=== PATIENT | male | born 1995 | race Caucasian/White ===

== ENCOUNTER 2016-12-11 08:49 | Emergency (ER) | payer SELFPAY ==
[~2016-12-11] VITALS: Ht 177.8 cm; Wt 108.9 kg
[~2016-12-11 08:49] MED LIST: ONDA4TAB11 PO; PRD20T PO; TRAM50TA2 PO
--- OUTSIDE RECORDS SUMMARY | 2016-12-11 08:54 | XMS REPORT | Continuity of Care Document ---
Author Author [facility] Organization [facility] Address Unknown Phone Unavailable Allergies Active Description Code Type Severity Reaction Onset Reported/Identified Relationship to Patient Clinical Status Yes No Known Drug Allergies [id number] Drug Allergy Mild N/A 12/25/2009 Medications Problems Date Dx Coded Attending Type Code Diagnosis Diagnosed By 01/15/2016 YOCASTA HARTMANN Ot F17.210 NICOTINE DEPENDENCE, CIGARETTES, UNCOMPL 01/15/2016 YOCASTA HARTMANN Ot K82.4 CHOLESTEROLOSIS OF GALLBLADDER 01/15/2016 YOCASTA HARTMANN Ot R10.10 UPPER ABDOMINAL PAIN, UNSPECIFIED 01/15/2016 YOCASTA HARTMANN Ot R63.0 ANOREXIA 01/15/2016 YOCASTA HARTMANN Ot R74.8 ABNORMAL LEVELS OF OTHER SERUM ENZYMES 01/16/2016 YOCASTA HARTMANN Ot F17.210 01/16/2016 YOCASTA HARTMANN Ot K82.4 01/16/2016 YOCASTA HARTMANN Ot R10.10 01/16/2016 YOCASTA HARTMANN Ot R63.0 01/16/2016 YOCASTA HARTMANN Ot R74.8 01/17/2016 YOCASTA HARTMANN Ot F17.210 01/17/2016 YOCASTA HARTMANN Ot K82.4 01/17/2016 YOCASTA HARTMANN Ot R10.10 01/17/2016 YOCASTA HARTMANN Ot R63.0 01/17/2016 YOCASTA HARTMANN Ot R74.8 01/20/2016 YOCASTA HARTMANN Ot F17.210 01/20/2016 YOCASTA HARTMANN Ot K82.4 01/20/2016 YOCASTA HARTMANN Ot R10.10 01/20/2016 YOCASTA HARTMANN Ot R63.0 01/20/2016 YOCASAT HARTMANN Ot R74.8 Procedures Results Encounters ACCT No. Visit Date/Time Discharge Status Pt. Type Provider Facility Loc./Unit Complaint [id number] 01/15/2016 15:23:00 2015 19:04:00 DIS Emergency YOCASTA HARTMANN [facility] ER
--- NOTE | 2016-12-11 10:20 | ED EENT ---
History of Present Illness General Chief Complaint: Dental Problems/Pain Stated Complaint: L LOWER JAW PAIN Nursing Triage Note: AMBULATED TO ROOM 10 WITH COMPLAINTS OF JAW PAIN X2 DAYS. DENIES INJURY. DENIES DENTAL PAIN. Source: patient Exam Limitations: no limitations History of Present Illness Time seen by provider: 10:15 Initial Comments This 21-year-old white male presents complaining of left jaw pain for the last 2 days. The patient states that the jaw pain which is severe in nature is sharp in quality and made worse by opening his mouth. The patient denies associated headache or stiff neck, nasal congestion or sinus tenderness, difficulty swallowing, chills or fever, productive cough, nausea, vomiting, or diarrhea. Next The patient's pain has not improved with sopd-cft-dflgxur analgesics. Allergies and Home Medications Allergies Coded Allergies: No Known Drug Allergies (Verified , 12/25/09) Home Medications Ondansetron 4 Mg Tab.rapdis #10 4 MG PO Q6H PRN PRN NAUSEA Prescribed by: YOCASTA MICHEL on 01/15/161857 Prednisone 20 Mg Tab #15 1 TAB PO ONCE take 3 po this am then 2po each am for the next three days then 1 po each am for three days then stop Prescribed by: RENETTA BREEN on 12/25/09 0946 Tramadol HCl 50 Mg Tablet #10 50 MG PO Q4H PRN PRN PAIN Prescribed by: YOCASTA MICHEL on 01/15/161857 Review of Systems Constitutional: No chills, No malaise Eyes: Denies Photophobia Ears: Denies Pain Nose: denies congestion Mouth: denies loose teeth, denies purulent discharge Throat: denies pain, denies swelling Respiratory: No cough Cardiovascular: No chest pain Gastrointestinal: No abdominal pain, No diarrhea, No nausea, No vomiting Musculoskeletal: No back pain, No joint pain Skin: No rash Neurological: No Symptoms Reported Hematologic/Lymphatic: No Symptoms Reported Immunological/Allergic: no symptoms reported Past Bcxjdhj-Lgvbkx-Preubi Hx Patient Social History Alcohol Use: Occasionally Uses Recreational Drug Use: No Smoking Status: Current Everyday Smoker Recent Foreign Travel: No Contact w/Someone Who Travel: No Recent Infectious Disease Expo: No Recent Hopitalizations: No Immunizations Up To Date Tetanus Booster (TDap): Unknown Surgeries HX Surgeries: Yes Surgeries: Adenoidectomy, Tonsillectomy Respiratory Hx Respiratory Disorders: No Cardiovascular Hx Cardiac Disorders: No Neurological Hx Neurological Disorders: No Genitourinary Hx Genitourinary Disorders: No Gastrointestinal Hx Gastrointestinal Disorders: No Musculoskeletal Hx Musculoskeletal Disorders: No Endocrine Hx Endocrine Disorders: No HEENT HX ENT Disorders: No Cancer Hx Cancer: No Psychosocial Hx Psychiatric Problems: No Reviewed Nursing Assessment Reviewed/Agree w Nursing PMH: Yes Family Medical History Significant Family History: No Pertinent Family Hx Physical Exam Vital Signs Vital Sign - Last 12Hours 12/11/16 09:10 Temp 97.6 Pulse 82 Resp 16 B/P 140/83 Pulse Ox 96 General Appearance: WD/WN mild distress Eyes: bilateral eye normal inspection Ears: bilateral ear auricle normal, bilateral ear other (there is evidence of scarring of the tympanic membrane bilaterally. The patient had PE tubes repeatedly as a child for recurrent episodes of otitis media.) Nose: normal inspection Mouth/Throat: pharynx normal dental tenderness (there is tenderness to palpation digitally at the gingival buccal border over the first left maxillary molar. There is no significant soft tissue swelling. No purulent drainage.) other (the remainder of the patient's ENT and oral exam demonstrated tenderness to palpation over the angle of the mandible. I do not appreciate any significant parotid swelling or tenderness.) Neck: non-tender full range of motion supple Cardiovascular: normal peripheral pulses regular rate, rhythm Respiratory: chest non-tender lungs clear normal breath sounds Gastrointestinal: normal bowel sounds non tender soft Neurologic/Psychiatric: no motor/sensory deficits alert normal mood/affect oriented x 3 Skin: normal color warm/dry Progress/Results/Core Measures Results/Orders Vital Signs/I&O Vital Sign - Last 12Hours 12/11/16 09:10 Temp 97.6 Pulse 82 Resp 16 B/P 140/83 Pulse Ox 96 Blood Pressure Mean: 102 Progress Note : Time: 10:20 Progress Note The patient's exam is consistent with but not diagnostic of dental caries. I'm going to initiate hydrocodone for pain. I will begin Pen-Vee K 500 mg 4 times a day with a loading dose of 1 g. I'm going to ask the patient to follow-up very closely at [facility] on Tuesday for further definitive evaluation. I invited the patient return in the emergency department in the interim for any further problems or worsening of his condition Departure Impression Impression: Primary Impression: Pain in lower jaw Disposition: HOME, SELF-CARE Condition: Unchanged Departure-Patient Inst. Decision time for Depature: 10:23 Referrals: [facility] (PC[facility]Family) Primary Care Physician Patient Instructions: Dental Pain (DC) Add. Discharge Instructions: Pen-Vee K and Vicodin as prescribed. Close follow-up with [facility] on Tuesday. Return if any problems or questions. All discharge instructions reviewed with patient and/or family. Voiced understanding. PAULA MAYFIELD MD Dec 11, 2016 10:20
[2016-12-11 10:34] VITALS: BP 139/78
== END 2016-12-11 10:34 | disposition home or self-care (01) ==
LOC: EDUNIT# 08:49 → ER 08:51
DX: R68.84 Jaw pain (principal); F17.210 Nicotine dependence, cigarettes, uncomplicated
CPT/HCPCS: 99282

== ENCOUNTER 2019-12-11 07:12 | Emergency (ER) | payer SELFPAY ==
[~2019-12-11] VITALS: Ht 178 cm; Wt 109.0 kg
[~2019-12-11 07:12] MED LIST changes: -TRAM50TA2 PO; +TRM50T PO
--- NOTE | 2019-12-11 07:33 | ED EENT ---
History of Present Illness General Stated Complaint: EAR PAIN;NECK PAIN;HEADACHE Source: patient History of Present Illness Date Seen by Provider: Dec 11, 2019 Time Seen by Provider: 07:33 Initial Comments 24-year-old male presents with right ear pain that goes down into his right lateral neck, headache, sore throat, fever, chills. Patient reports symptoms started yesterday. Patient is not having difficulty breathing, swallowing. Patient reports he's has quite a bit of pain in his ear in the lateral neck. Patient denies any decreased hearing. No nausea vomiting cough Allergies and Home Medications Allergies Coded Allergies: No Known Drug Allergies (Verified , 12/25/09) Home Medications Ondansetron 4 Mg Tab.rapdis, 4 MG PO Q6H PRN for NAUSEA Prescribed by: YOCASTA MICHEL on 01/15/161857 Prednisone 20 Mg Tab, 1 TAB PO ONCE take 3 po this am then 2po each am for the next three days then 1 po each am for three days then stop Prescribed by: RENETTA BREEN on 12/25/09 0946 Tramadol HCl 50 Mg Tablet, 50 MG PO Q4H PRN for PAIN Prescribed by: YOCASTA MICHEL on 01/15/161857 Patient Home Medication List Home Medication List Reviewed: Yes Review of Systems Review of Systems Constitutional: chills, fever Eyes: No Symptoms Reported Ears: Pain (right ear) Nose: no symptoms reported Mouth: no symptoms reported Throat: painful swallowing; denies difficulty with fluids Respiratory: No cough Cardiovascular: No chest pain Gastrointestinal: No abdominal pain, No nausea, No vomiting Musculoskeletal: neck pain (right lateral) Skin: no symptoms reported Past Dcpmhbo-Xmypkq-Xejrex Hx Past Med/Social Hx: Reviewed Nursing Past Med/Soc Hx Patient Social History Recent Foreign Travel: No Contact w/Someone Who Travel: No Recent Hopitalizations: No Immunizations Up To Date Tetanus Booster (TDap): Unknown Past Medical History Adenoidectomy, Tonsillectomy Family Medical History No Pertinent Family Hx Physical Exam Height, Weight, BMI Height: 5'10" Weight: 240lbs. oz. 108.674783bn; 35.15 BMI Method:Stated General Appearance: WD/WN Ears: right ear erythema, right ear TM red, right ear TM bulging; left ear TM normal Nose: normal inspection Mouth/Throat: No excessive drooling, No pharynx swelling, No tonsillar swelling, No uvula swelling Neck: full range of motion, supple, lymphadenopathy (R) Cardiovascular: normal peripheral pulses, regular rate, rhythm Respiratory: lungs clear, normal breath sounds Gastrointestinal: non tender, soft Neurologic/Psychiatric: ear flap binder II-XII nml as tested, alert, normal mood/affect, oriented x 3 Skin: normal color, warm/dry Progress/Results/Core Measures Results/Orders Lab Results Laboratory Tests Test 12/11/19 07:49 Range/Units Group A Streptococcus Screen NEGATIVE NEGATIVE Micro Results Microbiology 12/11/19 Influenza Types A,B Antigen (LEN) - Final, Complete My Orders Orders - CLEM RODRIGUEZR L DO Rapid Strep A Screen (12/11/19 07:39) Influenza A And B Antigens (12/11/19 07:39) Ketorolac Injection (Toradol Injection) (12/11/19 07:39) Ceftriaxone For Im Use (Rocephin For Im (12/11/19 07:45) Lidocaine 1% Inj 20 Ml (Xylocaine 1% Inj (12/11/19 07:45) Medications Given in ED Current Medications Medications Dose Ordered Sig/Lamonte Route Start Time Stop Time Status Last Admin Dose Admin Ceftriaxone Sodium 1,000 mg ONCE ONCE IM 12/11/19 07:45 12/11/19 07:46 DC 12/11/19 08:03 1,000 MG Lidocaine HCl 2.1 ml ONCE ONCE INJ 12/11/19 07:45 12/11/19 07:46 DC 12/11/19 08:03 2.1 ML Departure Impression Primary Impression: Otitis media Qualified Codes: H66.001 - Acute suppurative otitis media without spontaneous rupture of ear drum, right ear Disposition: 01 HOME, SELF-CARE Condition: Stable Departure-Patient Inst. Referrals: [facility] (PCP/Family) Primary Care Physician Patient Instructions: Ear Infections (Otitis Media) (DC) Scripts Naproxen (Naprosyn) 500 Mg Tablet 500 MG PO BID, #30 TAB 0 Refills Prov: RODRIGUEZ,ZONIA L DO 12/11/19 Amoxicillin (Amoxicillin) 500 Mg Capsule 500 MG PO TID, #21 CAP 0 Refills Prov: RODRIGUEZ,ZONIA L DO 12/11/19 RODRIGUEZZONIA L DO Dec 11, 2019 07:33
[2019-12-11] MEDS ORDERED: KETOROLAC 30 MG/ML VIAL IM STA (07:39)
[2019-12-11] MEDS ORDERED: LIDOCAINE 1% INJ 20 ML 20 ML VIAL INJ ONE (07:45)
[2019-12-11] MEDS ORDERED: cefTRIAXone 1,000 MG/2.86 ml vial (IM ONLY) IM ONE (07:45)
[2019-12-11] MEDS ORDERED: NAPR-1071 PO (08:36)
[2019-12-11] MEDS ORDERED: AMOX500C2 PO (08:36)
[2019-12-11 08:45] VITALS: BP 156/76
--- OUTSIDE RECORDS SUMMARY | 2019-12-15 16:47 | XMS REPORT ---
Author Author Laura Nova Doctor Organization [facility] Address Unknown Phone Unavailable Care Team Providers Care Cosmetician Apprentice Name Role Phone Migration, Doctor Unavailable Unavailable PROBLEMS Type Condition ICD9-CM Code SLA40-VD Code Onset Dates Condition S tatus SNOMED Code Problem Migraine without aura and without status migrain osus, not intractable G43.009 Active [id number] ALLERGIES No Information ENCOUNTERS Encounter Location Date Diagnosis [facility] [address] [address] Aug, Migraine without aura and wi thout status migrainosus, not intractable G43.009 and BMI 50.0-59.9, adult Z68.43 [facility] [address] [address] Aug, BMI 50.0-59.9, adult Z68.43 [facility] [address] [address] Aug, Thoracolumbar back pain M54. 5 [facility] [address] [address] Jan, [facility] [address] [address] Jan, [facility] [address] [place] [id number] [place] [id number] Jun, [facility] [address] [address] May, [facility] [address] [address] May, [facility] [address] [address] May, IMMUNIZATIONS No Known Immunizations SOCIAL HISTORY Never Assessed REASON FOR VISIT [place] [place] VITAL SIGNS MEDICATIONS No Known Medications RESULTS No Results PROCEDURES No Known procedures INSTRUCTIONS MEDICATIONS ADMINISTERED No Known Medications
--- OUTSIDE RECORDS SUMMARY | 2019-12-15 16:47 | XMS REPORT ---
Author Author Laura Nova Doctor Organization [facility] Address Unknown Phone Unavailable Care Team Providers Care Semiconductor Processing Group Leader Name Role Phone Migration, Doctor Unavailable Unavailable PROBLEMS Type Condition ICD9-CM Code LSG11-HS Code Onset Dates Condition S tatus SNOMED Code Problem Migraine without aura and without status migrain osus, not intractable G43.009 Active [id number] ALLERGIES No Information ENCOUNTERS Encounter Location Date Diagnosis [facility] [address] [address] Aug, Migraine without aura and wi thout status migrainosus, not intractable G43.009 and BMI 50.0-59.9, adult Z68.43 [facility] [address] [address] Aug, BMI 50.0-59.9, adult Z68.43 [facility] [address] [address] Aug, Thoracolumbar back pain M54. 5 [facility] [address] [address] Jan, [facility] [address] [address] Jan, [facility] [address] [place] [id number] [place] [address] Jun, [facility] [address] [address] May, [facility] [address] [address] May, [facility] [address] [address] May, IMMUNIZATIONS No Known Immunizations SOCIAL HISTORY Never Assessed REASON FOR VISIT [place] [place] VITAL SIGNS MEDICATIONS Medication Instructions Dosage Frequency Start Date End Date Duration S tat MiraLax 17 gram/dose take 17 g mixed wit h 8 oz. water or juice by Oral route 1 time per day Jun, Active RESULTS No Results PROCEDURES No Known procedures INSTRUCTIONS MEDICATIONS ADMINISTERED No Known Medications
--- OUTSIDE RECORDS SUMMARY | 2019-12-15 16:47 | XMS REPORT | Continuity of Care Document ---
Author Organization Unknown Address Unknown Phone Unavailable Allergies Active Description Code Type Severity Reaction Onset Reported/Identified Relationship to Patient Clinical Status Yes No Known Drug Allergies [id number] Drug Allergy Mild N/A 12/25/2009 Medications There is no data. Problems Date Dx Coded Attending Type Code Diagnosis Diagnosed By 06/13/2008 JAREK PATEL, BESSIE 465.9 UPPER RESPIRATORY INFECTION 08/05/2008 JAREK PATEL, BESSIE 380.4 CERUMEN IMPACTION 08/05/2008 JAREK PATEL, BESSIE 463 TONSILLITIS ACUTE 08/05/2008 JAREK PATEL, BESSIE 786.2 COUGH 05/26/2009 JAREK PATEL, BESSIE V70.4 EXAMINATION FOR MEDICOLEGAL REASONS 05/01/2010 JAREK PATEL, BESSIE 380.22 OTHER ACUTE OTITIS EXTERNA 05/04/2010 JAREK PATEL, BESSIE 278.00 OBESITY, UNSPECIFIED 05/04/2010 JAREK PATEL, BESSIE V20.2 ROUTINE OR CHILD HEALTH CHECK 05/24/2011 JAREK PATEL, BESSIE V70.3 SPORTS/SCHOOL EXAM 05/10/2012 JAREK PATEL, BESSIE V03.89 MENINGOCOCCAL DX 05/10/2012 JAREK PATEL, BESSIE V06.1 TDAP DX 06/25/2013 JAREK PATEL, BESSIE 564.00 CONSTIPATION 01/15/2016 YOCASTA HARTMANN Ot F17.210 NICOTINE DEPENDENCE, CIGARETTES, UNCOMPL 01/15/2016 YOCASTA HARTMANN Ot K82.4 CHOLESTEROLOSIS OF GALLBLADDER 01/15/2016 YOCASTA HARTMANN Ot R10.10 UPPER ABDOMINAL PAIN, UNSPECIFIED 01/15/2016 YOCASTA HARTMANN Ot R63.0 ANOREXIA 01/15/2016 YOCASTA HARTMANN Ot R74.8 ABNORMAL LEVELS OF OTHER SERUM ENZYMES 01/16/2016 YOCASTA HARTMANN Ot F17.210 01/16/2016 YOCASTA HARTMANN Ot K82.4 01/16/2016 NAMRATA HARTMANNTCHEN L Ot R10.10 01/16/2016 MARILU FRAZIER, YOCASTA L Ot R63.0 01/16/2016 MARILU FRAZIER, YOCASTA L Ot R74.8 01/17/2016 MARILU FRAZIER, YOCASTA L Ot F17.210 01/17/2016 MARILU FRAZIER, YOCASTA L Ot K82.4 01/17/2016 MARILU FRAZIER, YOCASTA L Ot R10.10 01/17/2016 MARILU FRAZIER, YOCASTA L Ot R63.0 01/17/2016 MARILU FRAZIER, YOCASTA L Ot R74.8 01/20/2016 MARILU FRAZIER, YOCASTA L Ot F17.210 01/20/2016 MARILU FRAZIER, YOCASTA L Ot K82.4 01/20/2016 MARILU FRAZIER, YOCASTA L Ot R10.10 01/20/2016 MARILU FRAZIER, YOCASTA L Ot R63.0 01/20/2016 MARILU FRAZIER, YOCASTA L Ot R74.8 Procedures There is no data. Results Test Result Range Streptococcus pyogenes antigen detection - 12/11/19 07:49 Streptococcus pyogenes antigen detection NEGATIVE NEGATIVE Influenza virus A and B antigen detectio n - 12/11/19 07:49 FLU RESULT NEGATIVE FOR INFLUENZA A AND B ANTIGENS BY IA NRG Bacterial throat culture - 12/11/19 07:4 9 Bacterial throat culture [id number] NRG FREE TEXT EXTERNAL PLUS ABUNDANT NORMAL BRITANY NRG QUANTITY OF GROWTH FEW NRG Encounters ACCT No. Visit Date/Time Discharge Status Pt. Type Provider Facility Loc./Unit Complaint [id number] 12/11/2019 07:13:00 020 08:45:00 DIS Emergency ZONIA RODRIGUEZ DO [facility] ER EAR PAIN;NECK PAIN;HEAD ACHE [id number] 12/11/2016 08:51:00 017 10:34:00 DIS Emergency TRAN PATEL, PAULA Mata [facility] ER L LOWER JAW PAIN [id number] 01/15/2016 15:23:00 016 19:04:00 DIS Emergency YOCASTA HARTMANN [facility] ER PAIN ALONG BOTTOM OF RI B CAGE [id number] 11/20/2019 13:00:00 11/20/2019 23:59:5 9 CLS Outpatient MALLIKA PATIÑO ALBERTO [facility] [id number] 06/25/2013 14:42:00 06/25/2013 23:59: 59 CLS Outpatient JAREK PATEL, BESSIE
--- OUTSIDE RECORDS SUMMARY | 2019-12-15 16:47 | XMS REPORT ---
Author Author [facility] Organization [facility] Address [address] [address] Care Team Providers Care Obstetrics Nurse Name Role Phone KEILA DAVIS Unavailable REBEKAH CARPIO Unavailable Migration, Doctor Unavailable Unavailable Migration, Doctor Unavailable Unavailable TRAN PATEL, PAULA Mata Unavailable Unavailable YOCASTA HARTMANN Unavailable Unavailable PCP, NONE Unavailable Unavailable Allergies Normalized Allergy Reported Date of Reaction(s) Care Provider Facility Allergy Type classification allergen Allergy Onset DA (3 Unclassified No Known Drug 12-25-2009 - no information YOCASTA Not Available sources.) Allergies FREDDIE MICHEL ([id number]) Medications Current Medications Medication Ingredient Drug Dose Dates Status Sig Sig Care Class(es) (Normalized) (Original) Provid er ibuprofen ibuprofen Nonsteroida 400 mg Active no Ibuprofen no 400 mg oral Translation l information 400 MG name tablet (2 s: [ Anti-inflam Orally Three (no sources.) Ibuprofen matory Drug times a day phone) 400 MG] 1 tablet with food or milk as needed 8h Active no MiraLax 17 no 06-25-20 Active take 8 MiraLax 17 no information gram/dose information 13 [oz_av] by gram/dose name (2 mouth once take 17 g (no sources.) daily mixed with 8 phone) oz. water or juice by Oral route 1 time per day Jun, Active 17 g 06-25-2013 Suspended no MiraLax no name inform 17 (no ation gram/dos phone) e take 17 g mixed with 8 oz. water or juice by Oral route 1 time per day Jun, Not-Placido ng topiramate topiramate no 25 mg 09-04-20 Active no Topam ax 25 no 25 mg oral Translation information 18 information MG Oral ly name tablet (1 s: [ Twice a day (no source.) Topamax 25 1 tablet 12h phone) MG] Aug, 30 day(s) Active Completed/Discontinued Medications Medication Ingredient Drug Dose Dates Status Sig Sig Care Class(es) (Normalized) (Original) Provid er naproxen naproxen Nonsteroida 500 mg 08-20-20 Suspende no Na proxen 500 no 500 mg oral Translation l 17 d information mg Orall y name tablet (1 s: [ Anti-inflam every 12 hrs (no source.) Naproxen matory Drug 1 tablet phone) 500 mg] with food or milk as needed 12h 11 Aug, 2017 Not-Taking Problems Active Problems Problem Normalized Date of Normalized Normalized Provider Fac ility Classification Problem(s) Problem Problem Problem Sta tus Onset/Resoluti Duration on Other Body mass Chronic Active KEILA DAVIS Community nutritional; index (BMI) [address] [place] [address] endocrine; and 50-59.9 , of [facility] metabolic adult [place] ([address]) disorders (7 Translations: sources.) [ - BMI 50.0-59.9, adult Z68.43] Other Constipation Episodic Active KEILA DAVIS Communit y gastrointestin Translations: [address] [place] [address] al disorders [ Unspecified of [facility] (1 source.) constipation] [place] ([address]) Spondylosis; Low back pain Episodic Active KEILA DAVIS Comm unity intervertebral Translations: [address] [place] [address] disc [ - of [facility] [place] [facility] disorders; Thoracolumbar [place] ([address]) other back back pain problems (4 M54.5] sources.) Bacterial Meningococcal Episodic Active KEILA DAVIS Communi ty infection ([address] [place] [address] source.) disease of [facility] [place] Translations: [place] ([address]) [ MENINGOCOCCAL DX] Headache; Migraine Chronic Active REBEKAH CARPIO Communit y including without aura, [address] [place] [address] migraine (6 not refractory of [place] sources.) Translations: [place] ([address]) [ Migraine without aura and without status migrainosus, not intractable, - Migraine without aura and without status migrainosus, not intractable G43.009] Immunizations Need for Episodic Active KEILA DAVIS Communit y and screening prophylactic [address] [place] [address] for infectious vaccination of [facility] disease (1 and [place] ([address]47) source.) inoculation against diphtheria-tet anus-pertussis , combined [DTP] [DTaP] Translations: [ DTAP TEST] Substance-rela Nicotine Chronic Active YOCASTA Not Avai lable hugo disorders dependence, FREDDIE MICHEL (34460) (2 sources.) cigarettes, uncomplicated Past or Other Problems Problem Normalized Date of Normalized Normalized Provider Fac ility Classification Problem(s) Problem Problem Problem Sta tus Onset/Resoluti Duration on Other liver Abnormal Episodic Completed YOCASTA Not Availab le diseases (2 levels of FREDDIE MICHEL (27355) sources.) other serum enzymes Other Anorexia Episodic Completed YOCASTA Not Available nutritional; FREDDIE MICHEL (72808) endocrine; and metabolic disorders (2 sources.) Biliary tract Cholesterolosi Episodic Completed YOCASTA Not Available disease (2 s of FREDDIE MICHEL (62962) sources.) gallbladder Abdominal pain Upper Episodic Completed YOCASTA Not Avai lable (4 sources.) abdominal FREDDIE MICHEL (31876) pain, unspecified Procedures The data below is from unstructured sources No Known procedures No Known procedures No Known procedures No Known procedures No Known procedures No Known procedures No Known procedures Immunizations The data below is from unstructured sources No Known Immunizations No Known Immunizations No Known Immunizations No Known Immunizations No Known Immunizations No Known Immunizations No Known Immunizations Results The data below is from unstructured sources No Results No Results No Results No Results No Results No Results No Results Vital Signs Vital Sign Value Interpretation Reference Date Time Care Prov ider Facility (Normalized) (Normalized) Range BMI (Body Mass 50.77 kg/m2 (no code) 15 - 25 kg/m2 09-04-2018 Jose ZAMANER Community Index) 09:40-0500 [id number] [facility] ([id number]) BMI (Body Mass 51.32 kg/m2 (no code) 15 - 25 kg/m2 08-14-2018 MATT DAVIS Community Index) 10:30-0500 6[address] [facility] ([id number]) Body 97.4 [degF] (no code) 97.8 - 99.0 09-04-2018 REBEKAH CONTRERAS [facility] Temperature [degF] 09:40-0500 [address] [facility] ([id number]) Body 97.7 [degF] (no code) 97.8 - 99.0 08-14-2018 KEILA DAVIS [facility] Temperature [degF] 10:30-0500 385[address] [facility] (48443) Height 152.4 cm (no code) cm 09-04-2018 [facility] 09:40-[id number] [place] [address] ([address]) Height 152.4 cm (no code) cm 08-14-2018 KEILA DAVIS Comm unity 10:30-[address] [place] [address] ([id number]) Weight 117.94 kg (no code) kg 09-04-2018 [facility] 09:40-[id number] [place] [address] ([address]) Weight 119.21 kg (no code) kg 08-14-2018 KEILA DAVIS Com munity 10:30-[address] [place] [address] (67458) Interventions No Information Plan of Treatment Normalized Care Care Detail Care Activity Date Care Provider F acility Activity (CHM) Chronic Health [facility] 10-06-2018 REBEKAH WILLIS [address] ([address]) (ESTAB) Establish [facility] 09-04-2018 KEILA DAVIS [address] [place] [address] ([id number]) Goals No Information Social History Normalized Code Original Code Date Value no information no information no information Unknown if ever smoked Functional Status No Information Mental Status No Information Encounters Encounter Normalized Encounter Encounter Diagnosis Care Provi eladio Organization Date Type 09-04-2018 (ESTAB) Establish Care Migraine without aura, MAGGIE CARPIO (no [facility] - not intractable, phone) (no phone) 09-04-2018 without status - migrainosus 09-04-2018 08-20-2017 (WALK-IN) Walk-In Care Low back pain [facility]ISSON LOPEZ ( [facility]) CARE (no phone) 08-20-2017 - 08-20-2017 06-25-2013 [facility] no information BESSIE TILLEY (n o phone) [facility] - (no phone) 06-25-2013 - 06-25-2013 05-10-2012 [facility] no information Doctor Migrati on (no [facility] - phone) (no phone) 05-10-2012 - 05-10-2012 12-11-2016 Emergency department no information no name (no jerrica ne) no organization name - patient visit (no phone) 12-11-2016 01-15-2016 Emergency department no information no name (no jerrica ne) no organization name - patient visit (no phone) 01-15-2016 08-14-2018 Nursing evaluation of Body mass index (BMI) L SERGEI DAVIS (no phone) [facility] - patient and report 50-59.9 , adult CARE (no phone) 08-14-2018 - 08-14-2018 11-20-2019 Patient encounter no information NONE PCP (no phone ) [facility] (no phone) 09-04-2018 Patient encounter no information no name (no phone) no organization name procedure (no phone) 01-21-2015 Telephone encounter no information Doctor Migration (no [facility] - phone) (no phone) 01-21-2015 - 01-21-2015 01-20-2015 Telephone encounter no information Doctor Migration (no [facility] - phone) (no phone) 01-20-2015 - 01-20-2015 05-24-2011 Telephone encounter no information Doctor Migration (no [facility] - phone) (no phone) 05-24-2011 - 05-24-2011 05-26-2009 Telephone encounter no information Doctor Migration (no [facility] - phone) (no phone) 05-26-2009 - 05-26-2009 Medical Equipment No Information Payers No Information Additional Source Comments This clinical document has been generated using [employer] software that has been certified by the Office of the National Coordinator for Health Information Technology (ONC 15.99.04.3023.Diam.31.00.0.271746) and the National Committee for Pin Machine Tender (NCQA, as an eMeasure certified technology). FOR RECORDS PERTAINING TO PATIENTS WHO ARE OR HAVE BEEN ENROLLED IN A CHEMICAL D EPENDENCY/SUBSTANCE ABUSE PROGRAM, SOME INFORMATION MAY BE OMITTED. This clinica l summary was aggregated from multiple sources. Caution should be exercised in using it in the provision of clinical care. This summary normalizes information from multiple sources, and as a consequence, information in this document may ma terially change the coding, format and clinical context of patient data. In lesly tion, data may be omitted in some cases. CLINICAL DECISIONS SHOULD BE BASED ON T HE PRIMARY CLINICAL RECORDS. [employer]. provides no warranty or guara ntee of the accuracy or completeness of information in this document.The followi ng information is based on time limited clinical information UNRECOGNIZED CONTENT PROVIDED BELOW FOR UNRECOGNIZED SECTION REASON FOR VISIT Triage JStrasserRNEstablish Care - Tesha MA, having severe migraines [id number] ge tting worse Tesha CASH, gets nausea and makes focusing difficult - Tesha [facility]
--- OUTSIDE RECORDS SUMMARY | 2019-12-15 16:47 | XMS REPORT ---
Author Author Laura DAVSI Organization [facility] Address [address] [place] [address] Care Team Providers Care Cooker Tender Name Role Phone SUSAN KEILA Unavailable PROBLEMS Type Condition ICD9-CM Code [id number] Code Onset Dates Condition S tatus SNOMED Code Problem Unspecified constipation 564.00 Activ e 44206328 Problem MENINGOCOCCAL DX V03.89 Active 235 48019 Problem DTAP TEST V06.1 Active ALLERGIES No Information ENCOUNTERS Encounter Location Date Diagnosis [facility] [id number] [place] [phone] Aug, [facility] [address] [id number] [address] [place] [phone] Aug, BMI 50.0-59.9, adult Z68.43 [facility] [id number] [place] [phone] Aug, Thoracolumbar back pain M54. 5 [facility] [id number] [place] [phone] Jan, [facility] [id number] [place] [phone] Jan, [facility] [address] [facility] [id number] [address] [place] [phone] Jun, [facility] [address] [id number] [place] [phone] May, [facility] [id number] [place] [phone] May, [facility] [id number] [place] [phone] May, IMMUNIZATIONS No Known Immunizations SOCIAL HISTORY Never Assessed REASON FOR VISIT [facility] VITAL SIGNS Height 60 in 2018-08-14 Weight 262.8 lbs 2018-08-14 Temperature 97.7 degrees Fahrenheit 2018-08-14 Heart Rate 92 bpm 2018-08-14 Respiratory Rate 20 2018-08-14 BMI 51.32 kg/m2 2018-08-14 Blood pressure systolic 110 mmHg 2018-08-14 Blood pressure diastolic 80 mmHg 2018-08-14 MEDICATIONS Medication Instructions Dosage Frequency Start Date End Date Duration S tatus Ibuprofen 400 MG Orally Three times a day 1 tablet with food or milk as needed 8h Active Naproxen 500 mg Orally every 12 hrs 1 tablet with food or milk as n eeded 12h 11 Aug, 2017 Not-Taking MiraLax 17 gram/dose take 17 g mixed wit h 8 oz. water or juice by Oral route 1 time per day Jun, Not-Taking RESULTS No Results PROCEDURES No Known procedures INSTRUCTIONS MEDICATIONS ADMINISTERED No Known Medications
--- OUTSIDE RECORDS SUMMARY | 2019-12-15 16:47 | XMS REPORT ---
Author Author Laura CARPIO Organization [facility] Address [address] [place] [address] Care Team Providers Care Security Compliance Engineer Name Role Phone REBEKAH CARPIO Unavailable PROBLEMS Type Condition ICD9-CM Code [id number] Code Onset Dates Condition S tatus SNOMED Code Problem Migraine without aura and without status migrain osus, not intractable G43.009 Active 478148366 ALLERGIES No Known Allergies ENCOUNTERS Encounter Location Date Diagnosis [facility] [address] [phone] Sep, [facility] [address] [phone] Aug, Migraine without aura and wi thout status migrainosus, not intractable G43.009 and BMI 50.0-59.9, adult Z68.43 [facility] [address] [address] Aug, BMI 50.0-59.9, adult Z68.43 [facility] [address] [phone] Aug, Thoracolumbar back pain M54. 5 [facility] [address] [place] [id number] [address] [place] [phone] Jan, [facility] [address] [phone] Jan, [facility] [address] [phone] Jun, [facility] [address] [phone] May, [facility] [address] [facility] [id number] [address] [address] May, [facility] [address] [facility] [id number] [address] [place] [phone] May, IMMUNIZATIONS No Known Immunizations SOCIAL HISTORY Never Assessed REASON FOR VISIT Establish Care - KPage MA, having severe migraines [id number] getting worse KPage MA, gets nausea and makes focusing difficult - KPage MA PLAN OF CARE Activity Details Follow Up 4 Weeks Reason: VITAL SIGNS Height 60 in 2018-09-04 Weight 260 lbs 2018-09-04 Temperature 97.4 degrees Fahrenheit 2018-09-04 Heart Rate 103 bpm 2018-09-04 Respiratory Rate 20 2018-09-04 BMI 50.77 kg/m2 2018-09-04 Blood pressure systolic 118 mmHg 2018-09-04 Blood pressure diastolic 88 mmHg 2018-09-04 MEDICATIONS Medication Instructions Dosage Frequency Start Date End Date Duration S tatus Ibuprofen 400 MG Orally Three times a day 1 tablet with food or milk as needed 8h Active Topamax 25 MG Orally Twice a day 1 tablet 12h Aug, 3 0 day(s) Active RESULTS No Results PROCEDURES No Known procedures INSTRUCTIONS MEDICATIONS ADMINISTERED No Known Medications
== END 2019-12-11 08:45 | disposition home or self-care (01) ==
LOC: EDUNIT# 07:12 → ER 07:13
DX: H66.91 Otitis media, unspecified, right ear (principal)
CPT/HCPCS: 87430; 87804